=== PATIENT | female | born 1955 | race Caucasian/White ===

== ENCOUNTER 2019-10-10 00:47 | Day surgery (SDC) | payer OTHER, SELFPAY ==
[2019-10-03 15:47] VITALS: BMI 49.1
[2019-10-10 10:53] VITALS: BP 145/60; PULSE 78; RESP 16; TEMP 37.1; O2SAT 98
[2019-10-10] MEDS: LACTATED RINGERS 1,000 ML 150 ML IV CONT (11:05)
--- NOTE | 2019-10-10 11:41 | WPDANESEPPF ---
Anes - Initial Pre Proc Eval Procedure: Operation Date: 10/10/19 12:00 Proposed Procedures p Screening Colonoscopy - Lanre Blas DO Date/Time: 10/10/19 11:41 Surgeon: Lanre Blas DO Pre Op Diagnosis: neoplasm screening Patient Data Age: 64 Gender: F Height: 5 ft 4 in Weight: 124.7 kg Last Vital Signs Temp 98.8 F 10/10/19 10:53 Pulse 78 10/10/19 10:53 Resp 16 10/10/19 10:53 BP 145/60 H 10/10/19 10:53 Pulse Ox 98 10/10/19 10:53 Allergies Allergy/AdvReac Type Severity Reaction Status Date / Time bupropion Allergy Unknown Unknown Verified 10/10/19 10:52 sulfamethoxazole Allergy Unknown Unknown Verified 10/10/19 10:52 tramadol Allergy Unknown Unknown Verified 10/10/19 10:52 trimethoprim Allergy Unknown Unknown Verified 10/10/19 10:52 Home Medications Medication Instructions Recorded Confirmed Type amlodipine 10 mg PO 10/03/19 History clonazepam 1 mg PO 10/03/19 History duloxetine 60 mg PO 10/03/19 History lisinopril 20 mg PO 10/03/19 History spironolactone 25 mg PO 10/03/19 History trazodone 100 mg PO 10/03/19 History Patient hx anesthesia problems: none Family hx anesthesia problems: none PMFSH Past Medical History Medical History (Updated 10/10/19 @ 11:40 by Julio Kitchen MD) Anxiety CVA (cerebral vascular accident) Depression Hypertension Morbid obesity Social History Social History Gender identity (if verbalized by the patient): Female Anes - Eval Final PreProcedure Day of Procedure 10/10/19 11:41 Patient weight: morbidly obese Heart: regular rate and rhythm Lungs: clear to auscultation Airway: Mallampati scale class III Neurological: alert and oriented Last oral intake: >/= 8 hours ASA classification: IV Emergent: no Anesthetic plan: proceed Anesthesia type and monitoring: general GIVS and standard monitoring Informed Consent: The patient's anesthetic plan and its attendant risks and benefits were discussed with the patient/family/POA. Questions were solicited and answers provided to the satisfaction of the patient/family/POA.
--- NOTE | 2019-10-10 12:08 | PM.IMHP ---
H&P: HPI History of Present Illness Chief complaint: neoplasm screening Narrative: This very pleasant lady is being evaluated for request of the primary physician. Impression: Screening and surveillance colonoscopy. The patient has history adenomatous colon polyps. Hypertension. CVA. Depression. Morbid obesity. Recommendation: Colonoscopy. History: This very pleasant lady's being evaluated for colon cancer and polyp screening. Patient has a history of adenomatous colon polyps. Her GI review systems negative at this juncture. Past medical history : Adenomatous colon polyps. Hypertension. CVA. Depression. Obesity. Past surgical history: Colonoscopy. TAHBSO. Cholecystectomy. Family medical history: Father PR. Mother diabetes. Sister uterine cancer. Pancreatic cancer and breast cancer in the family also. Social history: One peptic day for 15 years. She quit in 2006. No drinking or illicit drug use. Fourteen point review systems unremarkable. Physical examination: Insert exam: General: very pleasant patient in no acute distress. HEENT: Head was normocephalic sclerae is clear mouth without masses neck was supple. Heart: Rate rhythm regular without S3 or S4. Lungs: CTA. Abdomen: Soft with no guarding or rigidity. Bowel sounds were active. Neurologic: Cranial nerves 2 through 12 intact. No focal defects. No clonus. Musculoskeletal system: Revealed no joint tenderness or swelling no muscle atrophy. Extremities: Reveal Mild trace edema. Obese. Skin: Warm and dry with normal turgor. Mental status: intact. Patient is alert and oriented. [facility] Past Medical History Medical History (Updated 10/10/19 @ 11:40 by Julio Kitchen MD) Anxiety CVA (cerebral vascular accident) Depression Hypertension Morbid obesity Social History Social History Gender identity (if verbalized by the patient): Female Meds Home Medications and Allergies Home Medications Medication Instructions Recorded Confirmed Type amlodipine 10 mg PO 10/03/19 History clonazepam 1 mg PO 10/03/19 History duloxetine 60 mg PO 10/03/19 History lisinopril 20 mg PO 10/03/19 History spironolactone 25 mg PO 10/03/19 History trazodone 100 mg PO 10/03/19 History Allergies Allergy/AdvReac Type Severity Reaction Status Date / Time bupropion Allergy Unknown Unknown Verified 10/10/19 10:52 sulfamethoxazole Allergy Unknown Unknown Verified 10/10/19 10:52 tramadol Allergy Unknown Unknown Verified 10/10/19 10:52 trimethoprim Allergy Unknown Unknown Verified 10/10/19 10:52 Vital Signs Vital Signs - 24 hr 10/10/19 10:53 Temperature 37.1 C Pulse Rate 78 Respiratory Rate 16 Blood Pressure 145/60 H Pulse Oximetry 98
[2019-10-10 12:27] VITALS: BP 107/48; PULSE 60; RESP 16; O2SAT 96
[2019-10-10 12:37] VITALS: BP 111/53; PULSE 59; RESP 20; O2SAT 99
[2019-10-10 12:47] VITALS: BP 127/57; PULSE 63; RESP 18; O2SAT 100
== END 2019-10-10 13:14 | disposition home or self-care (01) ==
PROVIDERS: PCP Physician Assistant; Visit Provider Internal Medicine Gastroenterology
PROC: 0DJD8ZZ Inspection of Lower Intestinal Tract, Via Natural or Artificial Opening Endoscopic (ICD-10-PCS; CPT 45378; principal; 2019-10-10 12:00)
DX: Z12.11 Encounter for screening for malignant neoplasm of colon (principal); K64.8 Other hemorrhoids; K64.4 Residual hemorrhoidal skin tags; Z86.010 Personal history of colon polyps; I10 Essential (primary) hypertension; F41.8 Other specified anxiety disorders; Z86.73 Personal history of transient ischemic attack (TIA), and cerebral infarction without residual deficits; E66.01 Morbid (severe) obesity due to excess calories; Z68.42 Body mass index [BMI] 45.0-49.9, adult; Z87.891 Personal history of nicotine dependence
CPT/HCPCS: 45378; J2704; J7120

== ENCOUNTER 2020-02-16 14:28 | Emergency (ER) | payer OTHER, SELFPAY ==
[2020-02-16 14:50] VITALS: BP 121/66; PULSE 62; RESP 16; TEMP 37.1; O2SAT 98
--- NOTE | 2020-02-16 15:20 | ED.FEMALEGU ---
HPI - Female Genitourinary General Chief complaint: Urogenital-Female Stated complaint: uti Time Seen by Provider: 02/16/20 15:20 Source: patient Mode of arrival: ambulatory Limitations: no limitations History of Present Illness HPI Narrative: Kylah Lisa is a 64 yo female with a PMH of stroke, depression, HTN, patient care complaining of suprapubic pain and what feels like a bladder infection that have been going on for 3 days. Is having difficulty urinating urinating on demand here at the clinic so urine that she brought in from home was dipstick for evaluation. She says she has frequency and feeling like she cannot fully empty her bladder, she is also complaining of irritation around the urinary meatus Related Data Home Medications Medication Instructions Recorded Confirmed amlodipine [Norvasc] 10 mg PO DAILY 02/16/20 02/16/20 clonazepam [Klonopin] 1 mg PO BID 02/16/20 02/16/20 duloxetine [Cymbalta] 60 mg PO DAILY 02/16/20 02/16/20 lisinopril [Zestril] 20 mg PO DAILY 02/16/20 02/16/20 spironolactone [Aldactone] 37.5 mg PO DAILY 02/16/20 02/16/20 trazodone 100 mg PO HS 02/16/20 02/16/20 Allergies Allergy/AdvReac Type Severity Reaction Status Date / Time sulfamethoxazole Allergy Unknown Itching Verified 02/16/20 15:07 tramadol Allergy Unknown Unknown Verified 10/10/19 10:52 trimethoprim Allergy Unknown Itching Verified 02/16/20 15:07 bupropion AdvReac Unknown Nausea Verified 02/16/20 15:07 Review of Systems Review of Systems: Narrative: CONSTITUTIONAL: Denies fever, chills, sweats. EYES: Denies visual changes, redness, discharge. ENT: Denies rhinorrhea, congestion, sore throat, otalgia. CARDIOVASCULAR: Denies chest pain, palpitations, edema. RESPIRATORY: Denies dyspnea, wheezing, cough GASTROINTESTINAL: Denies abdominal pain, nausea, vomiting, diarrhea. GENITOURINARY: Has dysuria, no hematuria, no abnormal discharge; suprapubic pressure, skin irritation around genitals SKIN: Denies rash or itching. NEUROLOGIC: Denies numbness, or focal weakness. PSYCHIATRIC: Denies anxiety or depression. PMFSH Past Medical History Medical History Anxiety CVA (cerebral vascular accident) Depression Hypertension Morbid obesity Family History Family History Other Heart disease Hypertension Social History Social History Smoking status: Never smoker Alcohol intake: never Gender identity (if verbalized by the patient): Female Comments At time of signature, I agree with nursing past medical, surgical, social and family history. There is no relevant family history pertinent to the presenting complaint. Exam Narrative: Exam Narrative: GENERAL: This is a well-nourished, well-developed patient, in mild distress. HEAD: normocephalic, atraumatic. EYES: Sclera clear/white. Vision is grossly intact. EARS: External ears normal, auditory canals clear and without drainage, TMs normal without perforation. Hearing grossly intact. NOSE: External nose normal without nasal discharge, nares without redness, no rhinorrhea. THROAT: Mucous membranes moist, NECK: Neck supple, CARDIOVASCULAR: Regular rate and rhythm without murmurs, gallops, or rubs. RESPIRATORY: Clear to auscultation. Breath sounds equal bilaterally. No wheezes, rales, or rhonchi. GASTROINTESTINAL: Abdomen soft, suprapubic tender, SKIN: warm, intact with no suspicious lesions or rash, good texture and turgor. NEURO: awake, alert, and oriented to person, place and time. There were no obvious focal neurologic abnormalities. Steady gait EXTREMITIES: Normal range of motion. BACK: Nontender without deformity Course Course Emergency Course: Dipstick of her urine brought from home shows positive blood and protein; patient unable to void on site even though given multiple amounts of water Started on Kefle
--- NOTE | 2020-02-16 15:45 | PC.NURSE ---
1436- Pt was given water and was unable to provide urine specimen while here. Pt had brought in a home sample, provide instructed to use home sample.
== END 2020-02-16 15:44 | disposition home or self-care (01) ==
PROVIDERS: Emergency Provider Nurse Practitioner; PCP Physician Assistant
DX: N30.90 Cystitis, unspecified without hematuria (principal); N90.89 Other specified noninflammatory disorders of vulva and perineum; F41.9 Anxiety disorder, unspecified; F32.9 Major depressive disorder, single episode, unspecified; I10 Essential (primary) hypertension; E66.01 Morbid (severe) obesity due to excess calories; Z68.42 Body mass index [BMI] 45.0-49.9, adult; Z86.73 Personal history of transient ischemic attack (TIA), and cerebral infarction without residual deficits
CPT/HCPCS: 81003; 99213; G0463

== ENCOUNTER 2020-02-17 19:35 | Emergency (ER) | payer OTHER, SELFPAY ==
[2020-02-17 19:37] VITALS: BP 161/65; PULSE 85; RESP 18; TEMP 37.2; O2SAT 98
--- NOTE | 2020-02-17 19:45 | ED.FEMALEGU ---
HPI - Female Genitourinary General Chief complaint: Vaginal Bleeding Stated complaint: vaginal bleeding Time Seen by Provider: 02/17/20 19:42 History of Present Illness HPI Narrative: Vaginal irritation and dysuria for a few days. Seen at urgent care yesterday diagnosed with UTI. Started on keflex. No improvmenet in symptoms. Today she started bleeding. Unsure if it from the vagina or urethera. On review of the chart from yesterday her urine dip does not seem to be consistent with UTI. Related Data Home Medications Medication Instructions Recorded Confirmed amlodipine [Norvasc] 10 mg PO DAILY 02/16/20 02/16/20 clonazepam [Klonopin] 1 mg PO BID 02/16/20 02/16/20 duloxetine [Cymbalta] 60 mg PO DAILY 02/16/20 02/16/20 lisinopril [Zestril] 20 mg PO DAILY 02/16/20 02/16/20 spironolactone [Aldactone] 37.5 mg PO DAILY 02/16/20 02/16/20 trazodone 100 mg PO HS 02/16/20 02/16/20 Allergies Allergy/AdvReac Type Severity Reaction Status Date / Time sulfamethoxazole Allergy Unknown Itching Verified 02/16/20 15:07 tramadol Allergy Unknown Unknown Verified 10/10/19 10:52 trimethoprim Allergy Unknown Itching Verified 02/16/20 15:07 bupropion AdvReac Unknown Nausea Verified 02/16/20 15:07 Review of Systems Review of Systems: All systems reviewed & are unremarkable except as noted in HPI and below Cardiovascular: Cardiovascular: Denies chest pain Respiratory: Respiratory: Denies dyspnea Gastrointestinal: Gastrointestinal: Denies abdominal pain, Denies nausea and Denies vomiting Genitourinary: Genitourinary: Reports abnormal vaginal bleeding and Reports dysuria Musculoskeletal: Musculoskeletal: Denies back pain [facility] Past Medical History Medical History Anxiety CVA (cerebral vascular accident) Depression Hypertension Morbid obesity Family History Family History Other Heart disease Hypertension Social History Social History Smoking status: Never smoker Alcohol intake: never Gender identity (if verbalized by the patient): Female Exam Const: General: no acute distress and alert Nutritional Appearance: obese Orientation/consciousness: patient oriented x3 HENMT: Head: normal to inspection Resp: Effort & Inspection: normal respiratory effort Auscultation: clear to auscultation bilaterally Cardio: Rate: regular rate Rhythm: regular rhythm GI: GI Palp: Yes Soft to palpation and No Tenderness to palpation present (GI) : Speculum Exam - Vagina: abnormal vaginal discharge bloody and yellow Bimanual exam- vagina & uterus: cervical motion tenderness Neuro: General: patient oriented x3, moves all extremities and CN's II-XI intact bilaterally Speech: normal speech Extrem: General: edema bilateral Course Vital Signs Vital signs: Vital Signs Temperature 37.2 C 02/17/20 19:37 Pulse Rate 85 02/17/20 19:37 Respiratory Rate 18 02/17/20 19:37 Blood Pressure 161/65 H 02/17/20 19:37 Pulse Oximetry 98 02/17/20 19:37 Temperature 36.9 C 02/17/20 22:35 Pulse Rate 88 02/17/20 22:35 Respiratory Rate 18 02/17/20 22:35 Blood Pressure 148/93 H 02/17/20 22:35 Pulse Oximetry 99 02/17/20 22:35 MDM - Female Genitourinary MDM Narrative Medical decision making narrative: purulent vaginal discharge on exam. Erythema an swelling throughout vaginal mucosa. Consistent with non specific vaginitis. Will treat for common infectious causes. She will need OB follow-up Medical Records Attestation: I reviewed the patient's medical records. Lab Data Attestation: I reviewed the patient's lab results. Labs: Lab Results 02/17/20 02/17/20 Range/Units 20:07 21:04 Urine Color Yellow (Yellow) Urine Appearance Clear (Clear) Urine pH 5.0 (5.0-9.0) Ur Specific [place] 1.032 (1.001-1.035) Urine Protein Negati
[2020-02-17 20:36] LABS: Add Urine Microscopic? YES; Appearance Urine Clear (Clear); Bacteria Urine Trace /hpf; Bilirubin Urine Negative (Negative); Blood Urine 2+ (Negative); Color Urine Yellow (Yellow); Glucose Urine UA Negative (Negative); Ketones Urine Negative (Negative); Leukocyte Esterase Ur Negative LEU/UL (Negative); Mucus Urine Rare /lpf; Nitrate Urine Negative (Negative); Protein Urine Negative (Negative); Specific Grav Ur 1.032 (1.001-1.035); Squamous Epithelial Cell Urine Rare /hpf (Few); Urobilinogen Urine Negative mg/dL (<2.0); WBC Urine 0-3 /hpf
[2020-02-17] MEDS: cefTRIAXone 250 MG VIAL IM (20:59)
[2020-02-17] MEDS: AZITHROMYCIN 250 MG TABLET 1000 MG PO (20:59)
[2020-02-17] MEDS: metroNIDAZOLE 250 MG TABLET 2000 MG PO (21:00)
[2020-02-17 22:35] VITALS: BP 148/93; PULSE 88; RESP 18; TEMP 36.9; O2SAT 99
== END 2020-02-17 22:35 | disposition home or self-care (01) ==
PROVIDERS: Emergency Provider Emergency Medicine; PCP Physician Assistant
DX: N76.0 Acute vaginitis (principal); F41.9 Anxiety disorder, unspecified; Z86.73 Personal history of transient ischemic attack (TIA), and cerebral infarction without residual deficits; F32.9 Major depressive disorder, single episode, unspecified; E66.01 Morbid (severe) obesity due to excess calories
CPT/HCPCS: 51701; 81001; 87070; 87077; 87491; 87591; 96372; 99284; A9270; J0696

== ENCOUNTER 2020-03-27 12:18 | Outpatient (CLI) | payer MEDICARE, MEDICAID, SELFPAY ==
--- NOTE | ~2020-03-27 | US_ITS ---
EXAMINATION: US renal BI DATE: 03/27/2020 13:01 INDICATION: Chronic kidney disease stage III. TECHNIQUE: Multiple ultrasound grayscale images of the kidneys were obtained. COMPARISON: CT abdomen and pelvis 08/09/2019 FINDINGS: The right kidney measures 10.5 x 5.2 x 5.0 cm. The left kidney measures 10.1 x 5.5 x 6.0 cm. The kidn eys demonstrate normal parenchymal echogenicity. There is no hydronephrosis. The bladder is normal. IMPRESSION: 1. Normal kidneys. No hydronephrosis. Reviewed, dictated and finalized at location B.
== END 2020-03-27 12:19 | disposition home or self-care (01) ==
PROVIDERS: PCP Physician Assistant; Visit Provider Internal Medicine Nephrology
DX: I12.9 Hypertensive chronic kidney disease with stage 1 through stage 4 chronic kidney disease, or unspecified chronic kidney disease (principal); N18.3 Chronic kidney disease, stage 3 (moderate); I63.9 Cerebral infarction, unspecified
CPT/HCPCS: 76775

== ENCOUNTER 2020-06-06 12:30 | Outpatient (RCR) | payer MEDICARE, SELFPAY ==
--- NOTE | 2020-04-27 10:50 | PTOPEVAL ---
Thank you for referring Kylah Lisa to [facility].? The patient is scheduled to be seen for therapy? 2 x/week for 4 weeks. Please review, sign, date and return this plan of care MAIRA. I agree with and certify that the following plan of care is medically necessary. Referring Physician Date Attending Provider: Rishabh Hayes, PA *PT Outpatient Evaluation Start: 04/27/20 09:21 Freq: Status: Active Protocol: Document 04/27/20 09:31 YARIEL (Rec: 04/27/20 10:36 YARIEL [email or web address]) Therapy Assessment Status Assessment Status Assessment Status Evaluation Outpatient Past Medical History Past Medical History Source of Past Medical History Patient,Recalled from Previous Visit, Confirmed with Patient /Family Neurological History Hx Cerebrovascular Accident (CVA) Yes: 07/01/18 Cardiovascular History Hx Hypertension Yes Respiratory History Hx Respiratory Disorders No Significant History Gastrointestinal History Hx Cholecystectomy Yes Genitourinary History Hx Urinary Tract Infection Yes Musculoskeletal History Hx Musculoskeletal Disorders No Significant History Hematological History Hx Hematological Disorders No Significant History Endocrine History Hx Endocrine Disorders No Significant History HEENT History Hx Eye Surgery Yes: DETACHED RETINA Integumentary History Hx Eczema Yes Reproductive History Hx Post Menopausal Yes Psychosocial History Hx Anxiety Yes Hx Bipolar Disorder Yes Hx Depression Yes Pain History History of Any Previous or Ongoing No Significant History Instance of Pain Anesthesia History Hx Anesthesia Reactions No Significant History Evaluation Information Problem Diagnosis CVA Onset 2017 Additional Evaluation Detail She is unable to lay on her side due to dizziness. She sleeps in a recliner. Subjective Information She is walking daily with Query Text:As Reported By Patient/ varied distance. She pushes Family the transport chair to allow her to sit when fatigued. She performs HEP daily. Her right arm and leg continues to feel numb. she has difficutly feeling her right foot to be able to drive. She states this has been an issue since the stroke. She is able to perform
--- NOTE | 2020-04-27 12:02 | OTOPEVAL ---
OCCUPATIONAL THERAPY INITIAL EVALUATION/DISCHARGE SUMMARY: 04/27/2020 Thank you for referring Kylah Lisa to [facility].? Kylah has continued to achieve improvements of functional strength and independence since last evaluation completed 06/24/2019. Please review, sign, date and return this initial evaluation/discharge summary MAIRA. I agree with and certify that the following plan of care is medically necessary. Referring Physician Date Attending Provider: Rishabh Hayes, PA *OT Outpatient Evaluation/Discharge Summary Start: 04/27/20 10:37 Freq: Status: Active Protocol: Document 04/27/20 10:30 KJL (Rec: 04/27/20 12:02 KJL [email or web address]) Therapy Assessment Status Assessment Status Initial Evaluation/ Discharge Summary Evaluation Information Problem Diagnosis CVA Onset june 2018 Additional Evaluation Detail Pt experienced CVA in June of 2018 resulting in R sided hemiplegia and decreased sensation. Pt came to Outpatient OT from January 2019 - June 24, 2019 adressing R UE strength, coordination, decreased sensation. Subjective Information Pt reports since Outpatient OT Query Text:As Reported By Patient/ in 2019 is able to cook, Family clean, complete all ADL tasks independently but is still not able to drive and needs assistance getting into and out of bathtub occationally. Pt reports improvements with feelings items and still completes coordination and sensation HEP's that were issued in june of 2019. Prior Level of Function Activity Level (Last 3 Months) Hand Dominance Right Activity of Daily Living Ability Independent Indoor/Home Mobility Independent Community Mobility Independent Stairs Ability Independent Functional Cognition (Planning, Shopping Independent , Taking Medications) Cooking Yes Cleaning Yes Laundry Yes Shopping Yes Driving Yes Home Setting Home Type House,Single Level Environmental Barriers Elena, Carpet,Elena, Hardwood,Stairs, None Living Situation With Significant Other Support Available Local Family Support Mobility Assistive Device
--- NOTE | 2020-06-05 14:04 | PCPTNOTE ---
Patient called & cancelled scheduled appointment this date due to sick.
--- NOTE | 2020-06-06 14:37 | PTOPEVAL ---
Thank you for referring Kylah Lisa to [facility].? Pt has received 9 therapy visits from 04/27/20-06/06/20 to address impairments of weakness, decreased balance and decreased functional mobility. She demonstrates progress with balance on Tapia balance scale, improved hip strength and improved walking speed on TUG. She is indep with her HEP. She has partially achieved her therapy goals at this time. DC skilled therapy services with pt to cont with her HEP. Please review, sign, date and return this plan of care MAIRA. I agree with and certify that the following plan of care is medically necessary. Referring Physician Date Admitting Provider: Attending Provider: Rishabh Hayes, PA Referring Provider: *PT Outpatient Evaluation Start: 04/27/20 09:21 Freq: Status: Active Protocol: Document 06/06/20 12:29 CAP (Rec: 06/06/20 13:24 CAP [email or web address]) Therapy Assessment Status Assessment Status Assessment Status Re-evaluation/Discharge Note Evaluation Information Problem Diagnosis CVA Onset June 2018 Additional Evaluation Detail Pt experienced CVA in June of 2018 resulting in R sided hemiplegia Subjective Information She cont to walk daily but Query Text:As Reported By Patient/ cont to require the use of Family holding onto a wheelchair for support. She walks for up to 1 hour. She is only able to walk short distances with the cane due to fatigue. She will walk in a store when the weather is bad. Denies any changes in the symptoms of right UE/LE. 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 Cont to require assistance with getting out of the tub. She is performing her HEP consistently. She does feel her confidence with her walking has improved. Pain Assessment Self Report Self Report Pain Level 0 Pain Score Pain Score 0: Self Report Lower Extremity Muscle Strength Testing Hip Strength Left Hip Flexion Strength 4+ Good + Hip Extension Strength 5 Normal Hip Abduction Strength 3+ Fair + Hip Strength Comments hip ext/abd measured in standing Right Hip Flexion Strength 4+ Good + Hip Extension Strength 4+ Good + Hip Abduction Strength 3+ Fair + Hip Strength Comments hip ext and abd measured in st
== END 2020-06-08 09:30 | disposition home or self-care (01) ==
LOC: ANHPT 12:30
PROVIDERS: PCP Physician Assistant; Visit Provider Physician Assistant
DX: I63.9 Cerebral infarction, unspecified (principal)
CPT/HCPCS: 97110; 97112; 97116; 97162; 97165; 97530

== ENCOUNTER 2021-04-13 06:27 | Emergency (ER) | payer MEDICARE, MEDICAID, SELFPAY ==
--- NOTE | ~2021-04-13 | XR_ITS ---
EXAMINATION: XR chest 2V EXAM DATE: 04/13/2021 07:07 INDICATION: Chest pain and shortness of breath. TECHNIQUE: Frontal and lateral projections of the chest obtained and reviewed. Comparison is made to prior examination from 12/04/2018. FINDINGS: The lungs are clear. There are no pleural effusions. The cardiomediastinal silhouette is within normal limits. There is no pneumothorax suspected. The bones and soft tissues are unremarkab le. IMPRESSION: No acute cardiopulmonary findings. Reviewed, dictated and finalized at location A.
[2021-04-13 06:30] VITALS: BP 153/73; PULSE 88; RESP 16; TEMP 37.6; O2SAT 97
--- NOTE | 2021-04-13 06:43 | ECG_ITS ---
Measurements Intervals [place] Rate: 84 P: 37 LA: 155 QRS: 32 QRSD: 106 T: 46 QT: 360 QTc: 427 Interpretive Statements SINUS RHYTHM LOW QRS VOLTAGE IN PRECORDIAL LEADS BORDERLINE ST-T WAVE ABNORMALITY- ANTERIOR LEADS BORDERLINE ECG Electronically Signed On 04-13-2021 11:22:56 CDT by Yosef Wise D.O.
[2021-04-13 06:54] LABS: Basophils Absolute Auto 0.1 K/mm3 (0.0-0.1); Basophils Percent Auto 0.5 % (0.2-1.2); Eosinophils Absolute Auto 0.3 K/mm3 (0-0.3); Eosinophils Percent Auto 1.9 % (0-4.4); Hematocrit 39.3 % (37.0-47.0); Hemoglobin 12.1 g/dL (12.0-15.0); Immature Granulocyte Absolute 0.08 K/mm3 (0.00-0.031); Immature Granulocyte Percent A 0.5 % (0-0.5); Lymphocytes Absolute Auto 1.46 K/mm3 (0.9-3.2); Lymphocytes Percent Auto 9.1 % (18.3-44.2); Mean Corpuscular HGB Conc 30.8 g/dl (32-36); Mean Corpuscular Hemoglobin 29.7 pg (26-34); Mean Corpuscular Volume 96.3 fl (80-100); Mean Platelet Volume 9.3 fl (7.4-10.4); Monocytes Absolute Auto 0.9 K/mm3 (0.1-0.6); Monocytes Percent Auto 5.9 % (2.6-8.5); Neutrophils Absolute Auto 13.2 K/mm3 (1.3-6.7); Neutrophils Percent Auto 82.1 % (45.5-73.1); Platelet Count Result 310 k/mm3 (150-375); Red Blood Count 4.08 M/mm3 (4.2-5.4); Red Cell Distribution Width 12.8 % (11.5-14.5)
[2021-04-13 07:47] LABS: Anion Gap 6 mmol/L (8-16); Blood Urea Nitrogen 19 mg/dL (7-17); Calcium 8.5 mg/dL (8.4-10.2); Carbon Dioxide 30 mmol/L (22-30); Chloride 103 mmol/L (98-107); Estimated CRCL calculation 51 ml/min; Estimated Glomerular Filt Rate 41; Glucose 130 mg/dL (65-110); Potassium 3.8 mmol/L (3.4-5.0); Sodium 139 mmol/L (137-145)
--- NOTE | 2021-04-13 08:07 | ED.SOB ---
HPI - SOB/Dyspnea General Chief Complaint: Shortness of Breath/Dyspnea Stated Complaint: SOB, CP, cough Time Seen by Provider: 04/13/21 07:42 Source: patient Limitations: no limitations History of Present Illness HPI Narrative: Patient presents with cold symptoms for the last 3 days, dry cough, not feeling well. Patient is fully vaccinated for COVID-19. Patient lives with asymptomatic family. Patient denies any chest pain. Patient believes that she have pneumonia because she had similar symptoms in the past secondary to pneumonia. Patient also complaining of hoarseness and raspy voice Related Data Home Medications Medication Instructions Recorded Confirmed amlodipine [Norvasc] 10 mg PO DAILY 02/16/20 02/16/20 duloxetine [Cymbalta] 60 mg PO DAILY 02/16/20 02/16/20 lisinopril [Zestril] 20 mg PO DAILY 02/16/20 02/16/20 spironolactone [Aldactone] 37.5 mg PO DAILY 02/16/20 02/16/20 trazodone 100 mg PO HS 02/16/20 02/16/20 clonazepam 04/13/21 Allergies Allergy/AdvReac Type Severity Reaction Status Date / Time sulfamethoxazole Allergy Unknown Itching Verified 04/13/21 06:39 tramadol Allergy Unknown Unknown Verified 04/13/21 06:39 trimethoprim Allergy Unknown Itching Verified 04/13/21 06:39 bupropion AdvReac Unknown Nausea Verified 04/13/21 06:39 Review of Systems Review of Systems: CONSTITUTIONAL: Denies fever, chills, or sweats. EYES: Denies visual changes, redness, or discharge. ENT: Denies rhinorrhea, congestion, sore throat, or otalgia. CARDIOVASCULAR: Denies chest pain, palpitations, or edema. RESPIRATORY: Denies cough or dyspnea. GASTROINTESTINAL: Denies abdominal pain, nausea, vomiting, or diarrhea. GENITOURINARY: Denies dysuria or hematuria. SKIN: Denies rash or itching. MUSCULOSKELETAL: Denies back pain, joint pain, or myalgia. NEUROLOGIC: Denies headache, numbness, or weakness. PSYCHIATRIC: Denies anxiety or depression. [facility] Past Medical History Medical History (Updated 04/13/21 @ 09:46 by Isak Prakash MD) Anxiety CVA (cerebral vascular accident) Depression Hypertension Morbid obesity Family History Family History Other Heart disease Hypertension Social History Social History Smoking status: Never smoker Alcohol intake: never Gender identity (if verbalized by the patient): Female Exam Narrative: General appearance: Well-developed, well-nourished Skin: Normal color Head: Normocephalic, nontraumatic Eyes: Clear conjunctiva ENT: Oropharynx normal, ears normal, nose normal Neck: Supple, nontender Chest and respiratory: Airway patent, no respiratory distress, no accessory muscle use Heart: Regular rate/rhythm Abdomen: Soft, nontender, no organomegaly, quiet bowel sounds Vascular: Normal peripheral pulses, normal capillary refill. Musculoskeletal: Normal range of motion, nontender back Neurologic: Alert and oriented ?3, CERTIFIED ORTHOPTIST is normal as tested, no gross motor deficit Course Course Emergency Course: Stable Vital Signs Vital signs: Vital Signs Temperature 37.6 C H 04/13/21 06:30 Pulse Rate 88 04/13/21 06:30 Respiratory Rate 16 04/13/21 06:30 Blood Pressure 153/73 H 04/13/21 06:30 Pulse Oximetry 97 04/13/21 06:30 Temperature 37.6 C H 04/13/21 06:30 Pulse Rate 88 04/13/21 06:30 Respiratory Rate 16 04/13/21 06:30 Blood Pressure 153/73 H 04/13/21 06:30 Pulse Oximetry 97 04/13/21 06:30 MDM - SOB/Dyspnea MDM Narrative Medical decision making narrative: Viral infection is my concern. Labs, chest x-ray ordered. Covid swab, influenza swab ordered. Patient did not russel
[2021-04-13 08:15] LABS: Alanine Aminotransferase 14 U/L (4-35); Albumin Level 3.9 g/dL (3.5-5.1); Alkaline Phosphatase 77 U/L (38-126); Aspartate Amino Transferase 20 U/L (14-36); Bilirubin,Total 0.5 mg/dL (0.2-1.3)
[2021-04-13 09:50] VITALS: BP 132/68; PULSE 78; RESP 18; O2SAT 99
[2021-04-13 19:29] LABS: SARS-CoV-2 RNA PCR Negative
== END 2021-04-13 09:51 | disposition home or self-care (01) ==
PROVIDERS: Emergency Medicine; Emergency Provider Emergency Medicine; PCP Physician Assistant
DX: J06.9 Acute upper respiratory infection, unspecified (principal); E86.0 Dehydration; Z20.822 Contact with and (suspected) exposure to COVID-19; F41.9 Anxiety disorder, unspecified; F32.9 Major depressive disorder, single episode, unspecified; I10 Essential (primary) hypertension; E66.01 Morbid (severe) obesity due to excess calories; Z68.42 Body mass index [BMI] 45.0-49.9, adult; R94.31 Abnormal electrocardiogram [ECG] [EKG]
CPT/HCPCS: 36415; 71046; 80048; 80076; 85025; 87804; 93005; 99284; C9803; U0003; U0005

== ENCOUNTER 2024-04-08 10:22 | Inpatient (IN) | payer MEDICARE, SELFPAY ==
[2024-04-08] VITALS (14 sets, daily range): BP systolic 93–119; BP diastolic 34–66; PULSE 72–88; RESP 12–22; TEMP 36.4–36.9; O2SAT 97–100; BMI 56.7
--- NOTE | ~2024-04-08 | US_ITS ---
EXAMINATION:US venous doppler LE RT INDICATION:Right leg pain TECHNIQUE: Multiple grayscale, color flow and Doppler images of the right lower extremity deep venous systems were obtained and reviewed. COMPARISON:No prior studies for comparison. FINDINGS: The common femoral, superficial femoral and popliteal veins demonstrate normal respiratory variation, augmentation and compressibility. Color flow is also seen within the posterior tibial, pe roneal, greater saphenous and profunda veins. IMPRESSION: 1: No lower extremity deep venous thrombosis. Reviewed, dictated and finalized at location B.
--- NOTE | ~2024-04-08 | US_ITS ---
EXAMINATION: US arterial ankle brachial ind DATE: 04/10/2024 10:18 INDICATION: Peripheral arterial disease. TECHNIQUE: Segmental pressures and plethysmographic and Doppler waveforms of the brachial and lower e xtremity arteries were obtained. COMPARISON: None. FINDINGS: Right and left brachial artery pressures of 132 mm Hg and 145 mm Hg, respectively, are concordant (no rmal difference <= 30 mmHg). The right ankle-brachial index (EDDIE) is 0.59 (normal >= 0.9-1.0). The right great toe-brachial index (TBI) is 0.26 (normal >= 0.65). Arterial Doppler waveforms are biphasic in posterior tibial artery an d triphasic in dorsalis pedis. The left EDDIE is 0.81. The left TBI is 0.32. Arterial Doppler waveforms are triphasic in posterior tib ial artery and biphasic in dorsalis pedis. IMPRESSION: 1. Moderately decreased right EDDIE and mildly decreased left EDDIE, consistent with arterial occlusive d isease. Reviewed, dictated and finalized at location A. IMPRESSION: 1. Moderately decreased right EDDIE and mildly decreased left EDDIE, consistent wit h arterial occlusive disease.
--- NOTE | ~2024-04-08 | US_ITS ---
Renal-Bladder ultrasound Clinical History: Chronic kidney disease Technique: Real-time sonographic imaging of the kidneys and urinary bladder was performed. Findings: The right kidney measures 11.1 cm in length and the left kidney measures 13.7 cm. There is no hydronephrosis or renal calculus identified. Renal cortical echogenicity is within normal limits. No renal mass lesion is identified. The urinary bladder is collapsed, limiting evaluation. Impression: No significant abnormality seen. Collapsed urinary bladder limits evaluation. Reviewed, dictated and finalized at location M. Impression: No significant abnormality seen. Collapsed urinary bladder limits evaluation.
--- NOTE | 2024-04-08 10:37 | ED.EXTPRO ---
HPI - Extremity Problem General Chief complaint: Extremity Problem,Nontraumatic Stated complaint: R leg pain Time Seen by Provider: 04/08/24 10:25 History of Present Illness HPI Narrative: This is a 69-year-old female with a past medical history significant for prior CVA with residual right-sided hemiplegia, morbid obesity and chronic venous stasis dermatitis of bilateral lower extremities well as osteoarthropathy. Patient normally ambulates with a cane. Patient states for last 3 days she has been having increasing pain, swelling, redness of her right lower extremity. Denies any trauma recent injuries or illnesses. Was otherwise in her normal state of health. She states she has chronic venous stasis ulcers bilaterally without any worsening of them but knows that the right lower extremity has some redness overlying and she is concerned for an infection. Denies any systemic features such as fever, chills, headache, vision changes, chest pain, shortness a breath, abdominal pain, back pain. She has tried Tylenol at home which did alleviate the pain somewhat. No history of DVT, recent travel, recent procedures or hormone replacement therapy. Related Data Home Medications Medication Instructions Recorded Confirmed duloxetine 60 mg capsule,delayed 60 mg PO BID 02/16/20 04/08/24 release (Cymbalta) lisinopril 20 mg tablet (Zestril) 40 mg PO DAILY 02/16/20 04/08/24 spironolactone 25 mg tablet 25 mg PO DAILY 02/16/20 04/08/24 (Aldactone) trazodone 100 mg tablet 100 mg PO HS 02/16/20 04/08/24 clonazepam 1 mg tablet 1 mg PO TID 04/13/21 04/08/24 Adults Multivitamin 1 tablet BYMOUTH DAILY 04/08/24 04/08/24 ascorbic acid (vitamin C) 1,000 mg PO DAILY 04/08/24 04/08/24 chlorthalidone 25 mg tablet 25 mg PO DAILY 04/08/24 04/08/24 torsemide 10 mg tablet 10 mg PO DAILY 04/08/24 04/08/24 Allergies Allergy/AdvReac Type Severity Reaction Status Date / Time sulfamethoxazole Allergy Unknown Itching Verified 04/08/24 15:15 tramadol Allergy Unknown Unknown Verified 04/08/24 15:15 trimethoprim Allergy Unknown Itching Verified 04/08/24 15:15 bupropion AdvReac Unknown Nausea Verified 04/08/24 15:15 Review of Systems Review of Systems: As reviewed above in [facility] Past Medical History Medical History (Updated 04/08/24 @ 21:18 by Zenon Hanna MD) Anxiety and depression Arthritis CVA (cerebral vascular accident) Depression Diverticulitis Eczema GERD (gastroesophageal reflux disease) Hypertension Morbid obesity Osteoarthritis of knees, bilateral Osteoporosis Psoriasis Venous stasis dermatitis of both lower extremities Surgical History Surgical History (Updated 04/08/24 @ 16:15 by Kellee Menjivar APRN) History of appendectomy History of cholecystectomy History of tonsillectomy Family History Family History Other Diabetes mellitus Heart disease Hypertension Social History Social History Smoking status: Former smoker Second hand tobacco smoke exposure: Yes Alcohol intake: never Substance use: never Substance use type: does not use Do You Feel Safe in your Home?: Yes Lack of Transportation: No Lack of Food: Never True Current Housing: I Have Housing Concerned About Future Housing: Decline to Answer Difficulty Paying Gas/Electric Bills: Decline to Answer Difficulty Paying for Meds: Decline to Answer Currently Unemployed: Decline to Answer Education: Decline to Answer Difficulty w/ Childcare or Family Care: Decline to Answer Living arrangements: with family Occupation/Education: unemployed Additional occupation/education comments: disability Gender identity (if verbalized by the patient): Female Spiritual care concerns: No Exam Narrative: GENERAL: Morbidly obese, in pain, awake alert answering questions appropriately. HEAD: [Normocephalic, atraumat
[2024-04-08] MEDS: HYDROmorphone HCL INJ (*CRX) 1 MG/ML SYR IM (10:55)
[2024-04-08 11:12] LABS: Basophils Absolute Auto 0.1 K/mm3 (0.0-0.1); Basophils Percent Auto 0.2 % (0.2-1.2); Eosinophils Absolute Auto 0.1 K/mm3 (0-0.3); Eosinophils Percent Auto 0.5 % (0-4.4); Hematocrit 35.6 % (37.0-47.0); Hemoglobin 11.6 g/dL (12.0-15.0); Immature Granulocyte Absolute 0.14 K/mm3 (0.00-0.031); Immature Granulocyte Percent A 0.6 % (0-0.5); Lymphocytes Absolute Auto 1.33 K/mm3 (0.9-3.2); Mean Corpuscular HGB Conc 32.6 g/dl (32-36); Mean Corpuscular Hemoglobin 30.9 pg (26-34); Mean Corpuscular Volume 94.7 fl (80-100); Mean Platelet Volume 9.5 fl (7.4-10.4); Monocytes Absolute Auto 0.6 K/mm3 (0.1-0.6); Monocytes Percent Auto 2.9 % (2.6-8.5); Neutrophils Percent Auto 89.8 % (45.5-73.1); Platelet Count Result 279 k/mm3 (150-375); Red Blood Count 3.76 M/mm3 (4.2-5.4); Red Cell Distribution Width 14.4 % (11.5-14.5); White Blood Count 22.2 K/mm3 (4.5-10.0)
[2024-04-08 11:22] LABS: Anion Gap 15 mmol/L (4-12); Blood Urea Nitrogen 66 mg/dL (7-17); Calcium 9.1 mg/dL (8.4-10.2); Carbon Dioxide 22 mmol/L (22-30); Chloride 98 mmol/L (98-107); Estimated CRCL calculation 20 ml/min; Estimated Glomerular Filt Rate 13; Glucose 112 mg/dL (65-110); INR 1.2; Potassium 3.9 mmol/L (3.4-5.0); Prothrombin Time 15.9 Seconds (11.1-14.7); Sodium 135 mmol/L (137-145)
[2024-04-08 11:24] LABS: Partial Thromboplastin Time 35.1 Seconds (22.3-36.8)
--- NOTE | 2024-04-08 13:30 | PM.IMHP ---
H&P: HPI History of Present Illness Date/Time: 04/08/24 13:30 Chief Complaint: Leg Swelling Narrative: 69 y/o F presents here with leg swelling with PMH of anxiety/depression, CVA with residual right-sided hemiplegia, obesity, chronic venous stasis dermatitis, and hypertension. The patient presents here via personal vehicle from home for further evaluation of lower extremity swelling. The patient reports onset of increased pain, swelling, and erythema to her right lower extremity with onset approximately 3 days ago. She describes the pain to her RLE as sharp, nonradiating, constant, partially relieved with Tylenol, and no aggravating factors. She denies any precipitating injury or trauma to RLE. Patient does have history of chronic venous stasis ulcers bilaterally, ulcerations are unchanged but skin surrounding ulceration on the right had changes as listed. Patient has no known history of DVT or PE. Denies any recent extended travel/immobility, surgery, or malignancy with treatment. Patient denies any associated fever, chills, body aches, chest pain, shortness of breath, orthopnea, or dizziness. Patient is ambulatory at baseline with a cane. Patient endorses history of kidney disease, unsure what her function is at but has been told her kidneys work at 50%. Patient endorses seeing Vascular previously through a Abhishek FOY who practices through [employer] and in [place]. Initial VS at presentation: 98.5? F, HR 79, RR 16, 104/59, and 97% on RA ED workup showed: WBC 22.2, hemoglobin 11.6, INR 0.2, creatinine 3.6 and GFR 13 (previously 1.3 and GFR 41 in 2020), glucose 112. US of the RLE showed no DVT. Review of Systems Review of Systems: All systems reviewed & are unremarkable except as noted in HPI and below PMFSH Past Medical History Medical History (Updated 04/08/24 @ 16:15 by Kellee Menjivar APRN) Anxiety and depression Arthritis CVA (cerebral vascular accident) Depression Diverticulitis Eczema GERD (gastroesophageal reflux disease) Hypertension Morbid obesity Osteoarthritis of knees, bilateral Osteoporosis Psoriasis Venous stasis dermatitis of both lower extremities Surgical History Surgical History (Updated 04/08/24 @ 16:15 by Kellee Menjivar APRN) History of appendectomy History of cholecystectomy History of tonsillectomy Family History Family History Other Diabetes mellitus Heart disease Hypertension Social History Social History Smoking status: Former smoker Second hand tobacco smoke exposure: Yes Alcohol intake: never Substance use: never Substance use type: does not use Do You Feel Safe in your Home?: Yes Lack of Transportation: No Lack of Food: Never True Current Housing: I Have Housing Concerned About Future Housing: Decline to Answer Difficulty Paying Gas/Electric Bills: Decline to Answer Difficulty Paying for Meds: Decline to Answer Currently Unemployed: Decline to Answer Education: Decline to Answer Difficulty w/ Childcare or Family Care: Decline to Answer Living arrangements: with family Occupation/Education: unemployed Additional occupation/education comments: disability Gender identity (if verbalized by the patient): Female Spiritual care concerns: No Meds Home Medications and Allergies Home Medications Medication Instructions Recorded Confirmed Type duloxetine 60 mg capsule,delayed 60 mg PO BID 02/16/20 04/08/24 History release (Cymbalta) lisinopril 20 mg tablet (Zestril) 40 mg PO DAILY 02/16/20 04/08/24 History spironolactone 25 mg tablet 25 mg PO DAILY 02/16/20 04/08/24 History (Aldactone) trazodone 100 mg tablet 100 mg PO HS 02/16/20 04/08/24 History clonazepam 1 mg tablet 1 mg PO TID 04/13/21 04/08/24 History Adults Multivitamin 1 tablet BYMOUTH DAILY 04/08/24 04/08/24 History ascorbic acid (vitamin C) 1,000 mg PO D
[2024-04-08 14:08] LABS: Creatine Kinase 100 U/L (30-135)
--- NOTE | 2024-04-08 15:04 | ADMGEN ---
This patient, Kylah Lisa, was admitted to Medical Room 341-01. Patient/family oriented to hospital policies and general routines including ID bracelet, bed and alarms, visiting hours, pain management, procedures, bathroom and other care routines, personal items, smoking policy, room service/diet, and visiting hours. Information on how to activate the Rapid Response Team has been discussed. Patient/Family are encouraged to report perceived risks to care and to ask questions if they do not understand what they are told or what they should do.
[2024-04-08] MEDS: LACTATED RINGERS 1,000 ML 999 ML IV CONT (15:06)
[2024-04-08] MEDS: HYDROmorphone HCL INJ (*CRX) 1 MG/ML SYR IV PUSH (15:07)
[2024-04-08] MEDS: CLINDAMYCIN 600 MG/D5W 50 ML 600 MG/50 ML PIGGYBACK 100 MG IVPB (15:07)
[2024-04-08] MEDS: PIPERACILLIN/TAZ 2.25G/NS 50ML 2.25 GM/50 ML BAG IVPB ×2 (15:40→21:13)
[2024-04-08] MEDS: clonazePAM (*CRX) 0.5 MG TABLET 1 MG PO (17:57)
[2024-04-08] MEDS: DULoxetine HCL 60 MG CAPSULE.DR PO (17:57)
[2024-04-08] MEDS: LACTATED RINGERS 1,000 ML 100 ML IV CONT (17:57)
[2024-04-08] MEDS: HYDROmorphone HCL INJ (*CRX) 1 MG/ML SYR 0.5 MG IV PUSH ×2 (18:06→21:29)
[2024-04-08 19:16] LABS: Creatinine Urine 268.1 mg/dL
[2024-04-08 19:19] LABS: Sodium Urine Random 49 meq/L
[2024-04-08 19:22] LABS: Creatinine Urine 271.5 mg/dL; Total Protein Urine Random 18 mg/dL; Ur Ttl Prot Creatinine Ratio 0.07 mg/mg (0-0.20)
[2024-04-08 20:07] LABS: Add Urine Microscopic? YES; Appearance Urine Cloudy (Clear); Bacteria Urine 3+ /hpf; Bilirubin Urine Negative (Negative); Blood Urine Negative (Negative); Color Urine Yellow (Yellow); Glucose Urine UA Negative (Negative); Ketones Urine Trace mg/dL (Negative); Leukocyte Esterase Ur 2+ LEU/UL (Negative); Need Manual Microscopic Reviewed; Nitrate Urine Negative (Negative); Protein Urine Trace mg/dL (Negative); Specific Grav Ur 1.019 (1.001-1.035); Squamous Epithelial Cell Urine Moderate /hpf (Few); Urobilinogen Urine 0.2 mg/dL (<2.0); WBC Urine 51-100 /hpf (0-3)
[2024-04-08] MEDS: traZODone HCL 50 MG TABLET 100 MG PO (21:14)
[2024-04-09] MEDS: HYDROmorphone HCL INJ (*CRX) 1 MG/ML SYR 0.5 MG IV PUSH ×6 (02:29→20:57)
[2024-04-09 05:22] LABS: Basophils Absolute Auto 0.1 K/mm3 (0.0-0.1); Basophils Percent Auto 0.4 % (0.2-1.2); Eosinophils Absolute Auto 0.2 K/mm3 (0-0.3); Eosinophils Percent Auto 1.8 % (0-4.4); Hemoglobin 10.8 g/dL (12.0-15.0); Immature Granulocyte Absolute 0.12 K/mm3 (0.00-0.031); Immature Granulocyte Percent A 0.9 % (0-0.5); Lymphocytes Absolute Auto 1.56 K/mm3 (0.9-3.2); Lymphocytes Percent Auto 11.5 % (18.3-44.2); Mean Corpuscular HGB Conc 31.8 g/dl (32-36); Mean Corpuscular Volume 97.7 fl (80-100); Mean Platelet Volume 9.7 fl (7.4-10.4); Monocytes Absolute Auto 0.7 K/mm3 (0.1-0.6); Monocytes Percent Auto 5.3 % (2.6-8.5); Neutrophils Absolute Auto 10.9 K/mm3 (1.3-6.7); Neutrophils Percent Auto 80.1 % (45.5-73.1); Platelet Count Result 275 k/mm3 (150-375); Red Blood Count 3.48 M/mm3 (4.2-5.4); Red Cell Distribution Width 14.6 % (11.5-14.5); White Blood Count 13.6 K/mm3 (4.5-10.0)
[2024-04-09] MEDS: PIPERACILLIN/TAZ 2.25G/NS 50ML 2.25 GM/50 ML BAG IVPB ×3 (05:26→20:49)
[2024-04-09 05:32] LABS: Alanine Aminotransferase 21 U/L (6-35); Albumin Level 3.8 g/dL (3.5-5.1); Alkaline Phosphatase 72 U/L (38-126); Anion Gap 13 mmol/L (4-12); Aspartate Amino Transferase 34 U/L (14-36); Bilirubin,Total 0.4 mg/dL (0.2-1.3); Blood Urea Nitrogen 71 mg/dL (7-17); Calcium 8.7 mg/dL (8.4-10.2); Carbon Dioxide 23 mmol/L (22-30); Chloride 98 mmol/L (98-107); Estimated CRCL calculation 16 ml/min; Estimated Glomerular Filt Rate 10; Glucose 99 mg/dL (65-110); Potassium 4.1 mmol/L (3.4-5.0); Sodium 134 mmol/L (137-145)
[2024-04-09 06:00] VITALS: BP 90/45; PULSE 70; RESP 18; TEMP 36.8; O2SAT 95
[2024-04-09] MEDS: clonazePAM (*CRX) 0.5 MG TABLET 1 MG PO ×3 (08:52→17:08)
[2024-04-09] MEDS: DULoxetine HCL 60 MG CAPSULE.DR PO ×2 (08:52→17:08)
[2024-04-09] MEDS: lisinopriL 20 MG TABLET 40 MG PO (08:52)
[2024-04-09] MEDS: CHLORTHALIDONE 25 MG TABLET PO (08:52)
[2024-04-09] MEDS: ENOXAPARIN 30 MG/0.3 ML SYRINGE SUB-Q (08:53)
[2024-04-09] MEDS: TORSEMIDE 10 MG TABLET PO (08:53)
[2024-04-09] MEDS: SPIRONOLACTONE 25 MG TABLET PO (08:53)
--- NOTE | 2024-04-09 08:54 | PM.IMPN ---
Progress Note: A&P Assessment and Plan (1) Cellulitis of right lower extremity: Code(s): L03.115 - Cellulitis of right lower limb Status: Acute Assessment and Plan: - did not meet SIRS criteria: WBC only - WBC 22.2 - US of RLE showed no DVT - known small venous stasis ulcerations of BLE - started on clindamycin on 04/08, transitioned to Zosyn to cover possible UTI (UA equivocal, follow culture) - wound care consulted - monitor WBC -pain medication with [place] and p.r.n. Dilaudid for breakthrough (2) Acute kidney injury: Code(s): N17.9 - Acute kidney failure, unspecified Status: Acute Assessment and Plan: - creatinine 3.6 and GFR 13, previously 1.3 and GFR 41 in 2020. Unclear recent baseline. - add CK, urine sodium, urine protein/creatinine, urine creatinine - UA equivocal for UTI, may be contaminant. Antibiotics exchanged to cover for possible UTI, follow culture. - bladder scan for post-void residual - monitor I&Os - will hold home diuretics due to unclear baseline. on torsemide 10 mg daily, spironolactone 25 mg daily, and chlorthalidone 25 mg daily. - will start IV fluids (3) Venous stasis ulcers of both lower extremities: Code(s): I83.019 - Varicose veins of right lower extremity with ulcer of unspecified site; I83.029 - Varicose veins of left lower extremity with ulcer of unspecified site; L97.919 - Non-pressure chronic ulcer of unspecified part of right lower leg with unspecified severity; L97.929 - Non-pressure chronic ulcer of unspecified part of left lower leg with unspecified severity Status: Acute Assessment and Plan: - will need outpatient follow-up with Vascular---already established -Hernandez wraps to bilateral lower extremities when pain is better controlled - wound care consulted Plan Apnea link added to screen for ROBE, patient reported she has put off scheduling a formal sleep study due to concerns for ROBE by her vascular surgeon. Apnea link showed AHI 4.9 and MAGGI 6.1. She had 6 minutes of desaturations less than 90% and 2 minutes of desaturations of less than 89%. Total desaturations of 44. Diet: Renal GI Prophylaxis: Not currently indicated DVT Prophylaxis: Lovenox 30 Lines: Peripheral Code Status: Full code Subjective Date/time seen: 04/09/24 08:54 Interval history: 69 y/o F presents here with leg swelling with PMH of anxiety/depression, CVA with residual right-sided hemiplegia, obesity, chronic venous stasis dermatitis, and hypertension. The patient presents here via personal vehicle from home for further evaluation of lower extremity swelling. 04/09: Patient is seen sitting on the edge of the bed and is crying because she is in pain. She states that she has severe pain to her right lower extremity. The Dilaudid is helping but it does not last long. She notes increased redness, swelling, and pain to her right lower extremity over the last few days. There are 2 open areas on her lower leg better draining bloody to clear fluid. She denies fever or chills. I discussed with her seeing someone for her lymphedema which she says she already follows with a vascular physician. They had recommended and prescribed her lymphedema stockings but she says she is unable to wear them could she cannot get the stockings on. She states she recently bought some wraps on line and foot squeezers other supposed to help push the fluid back. Review of Systems Review of Systems: All systems reviewed & are unremarkable except as noted in HPI and below Exam Narrative: General: Obese, tearful, appears in pain appears stated age. HEENT: normocephalic, atraumatic. Mucous membranes moist. EOMI, PERRLA, bilateral sclera anicteric, no conjunctival injection. Neck supple without JVD, lymphadenopathy, or bruit. Respiratory: clear to auscultation bilaterally. No rales/rhonic/wheezes. Cardiovascular: Regular rate and rhythm, normal S1-S2 upon auscultation. No murmurs, r
[2024-04-09] MEDS: HYDROcodone/acetaminophen (*CRX) 5-325 MG TABLET 1 TAB PO ×2 (13:08→17:08)
[2024-04-09 16:03] VITALS: BP 104/44; PULSE 71; RESP 17; TEMP 36.6; O2SAT 94
[2024-04-09 16:27] LABS: Creatine Kinase 386 U/L (30-135)
[2024-04-09 16:40] LABS: Complement C3 127 mg/dL (88-165)
[2024-04-09 17:36] LABS: Erythrocyte Sedimentation Rate 95 mm/hr (0-20)
[2024-04-09 19:24] LABS: Creatinine Urine 154.4 mg/dL; Total Protein Urine Random 22 mg/dL; Ur Ttl Prot Creatinine Ratio 0.14 mg/mg (0-0.20)
[2024-04-09 19:26] LABS: Potassium Urine Random 12.8 meq/L; Sodium Urine Random 65 meq/L
[2024-04-09 19:56] LABS: Eosinophil Urine None Seen % (None Seen); Urine Eos QC 2nd Tech Confirmed
[2024-04-09] MEDS: traZODone HCL 50 MG TABLET 100 MG PO (20:51)
[2024-04-09 22:00] VITALS: BP 98/45; PULSE 83; RESP 22; TEMP 36.4; O2SAT 93
[2024-04-09 22:35] VITALS: BP 108/52
[2024-04-10] MEDS: HYDROcodone/acetaminophen (*CRX) 5-325 MG TABLET 1 TAB PO ×3 (02:50→20:09)
[2024-04-10 05:10] LABS: Basophils Absolute Auto 0.1 K/mm3 (0.0-0.1); Basophils Percent Auto 0.6 % (0.2-1.2); Eosinophils Absolute Auto 0.2 K/mm3 (0-0.3); Eosinophils Percent Auto 1.9 % (0-4.4); Hematocrit 33.5 % (37.0-47.0); Hemoglobin 10.6 g/dL (12.0-15.0); Immature Granulocyte Absolute 0.18 K/mm3 (0.00-0.031); Immature Granulocyte Percent A 1.6 % (0-0.5); Lymphocytes Absolute Auto 1.24 K/mm3 (0.9-3.2); Mean Corpuscular HGB Conc 31.6 g/dl (32-36); Mean Corpuscular Hemoglobin 30.6 pg (26-34); Mean Corpuscular Volume 96.8 fl (80-100); Mean Platelet Volume 9.5 fl (7.4-10.4); Monocytes Absolute Auto 0.7 K/mm3 (0.1-0.6); Monocytes Percent Auto 6.2 % (2.6-8.5); Neutrophils Absolute Auto 8.9 K/mm3 (1.3-6.7); Neutrophils Percent Auto 78.7 % (45.5-73.1); Platelet Count Result 312 k/mm3 (150-375); Red Blood Count 3.46 M/mm3 (4.2-5.4); Red Cell Distribution Width 14.5 % (11.5-14.5); White Blood Count 11.3 K/mm3 (4.5-10.0)
[2024-04-10 05:22] LABS: Alanine Aminotransferase 44 U/L (6-35); Albumin Level 3.7 g/dL (3.5-5.1); Alkaline Phosphatase 121 U/L (38-126); Anion Gap 15 mmol/L (4-12); Aspartate Amino Transferase 79 U/L (14-36); Bilirubin,Total 0.5 mg/dL (0.2-1.3); Blood Urea Nitrogen 75 mg/dL (7-17); Calcium 8.4 mg/dL (8.4-10.2); Carbon Dioxide 20 mmol/L (22-30); Chloride 101 mmol/L (98-107); Estimated CRCL calculation 16 ml/min; Estimated Glomerular Filt Rate 9; Glucose 108 mg/dL (65-110); Magnesium 2.5 mg/dL (1.6-2.3); Potassium 3.8 mmol/L (3.4-5.0); Sodium 136 mmol/L (137-145)
[2024-04-10] MEDS: PIPERACILLIN/TAZ 2.25G/NS 50ML 2.25 GM/50 ML BAG IVPB (05:50)
[2024-04-10] MEDS: HYDROmorphone HCL INJ (*CRX) 1 MG/ML SYR 0.5 MG IV PUSH ×2 (05:53→11:45)
[2024-04-10 06:00] VITALS: BP 121/34; PULSE 77; RESP 20; TEMP 36.4; O2SAT 96
--- NOTE | 2024-04-10 07:53 | PM.IMPN ---
Progress Note: A&P Assessment and Plan (1) Cellulitis of right lower extremity: Code(s): L03.115 - Cellulitis of right lower limb Status: Acute Assessment and Plan: - did not meet SIRS criteria: WBC only - WBC 22.2---->13.6-->11.3 - US of RLE showed no DVT - known small venous stasis ulcerations of BLE - started on clindamycin on 04/08, transitioned to Zosyn to cover possible UTI (UA equivocal, follow culture) - Urine culture had no growth, d/c zosyn and start Rocephin for cellulitis. Low risk for MRSA. - wound care consulted - monitor WBC -pain medication with [place] and p.r.n. Dilaudid for breakthrough (2) Acute kidney injury: Code(s): N17.9 - Acute kidney failure, unspecified Status: Acute Assessment and Plan: - creatinine 3.6 and GFR 13, previously 1.3 and GFR 41 in 2020. Recent Cr at [place] was 1.5-1.8 - add CK, urine sodium, urine protein/creatinine, urine creatinine - UA equivocal for UTI, may be contaminant. Antibiotics exchanged to cover for possible UTI, follow culture. - bladder scan for post-void residual - monitor I&Os - will hold home diuretics due to unclear baseline. on torsemide 10 mg daily, spironolactone 25 mg daily, and chlorthalidone 25 mg daily. - was on LR at 100 ml per hour. Order discontinued at midnight for some reason. NS resumed at 100 ml an hour today - renal ultrasound ordered - FeNA 1.4% - Sodium bicarb 650 mg PO BID - [place] records have been requested - nephrology consulted, recs appreciated (3) Venous stasis ulcers of both lower extremities: Code(s): I83.019 - Varicose veins of right lower extremity with ulcer of unspecified site; I83.029 - Varicose veins of left lower extremity with ulcer of unspecified site; L97.919 - Non-pressure chronic ulcer of unspecified part of right lower leg with unspecified severity; L97.929 - Non-pressure chronic ulcer of unspecified part of left lower leg with unspecified severity Status: Acute Assessment and Plan: - will need outpatient follow-up with Vascular---already established - Hernandez wraps to bilateral lower extremities when pain is better controlled - wound care consulted Plan Apnea link added to screen for ROBE, patient reported she has put off scheduling a formal sleep study due to concerns for ROBE by her vascular surgeon. Apnea link showed AHI 4.9 and MAGGI 6.1. She had 6 minutes of desaturations less than 90% and 2 minutes of desaturations of less than 89%. Total desaturations of 44. Diet: Renal GI Prophylaxis: Not currently indicated DVT Prophylaxis: Lovenox 30 Lines: Peripheral Code Status: Full code Subjective Date/time seen: 04/10/24 07:53 Interval history: 69 y/o F presents here with leg swelling with PMH of anxiety/depression, CVA with residual right-sided hemiplegia, obesity, chronic venous stasis dermatitis, and hypertension. The patient presents here via personal vehicle from home for further evaluation of lower extremity swelling. 04/09: Patient is seen sitting on the edge of the bed and is crying because she is in pain. She states that she has severe pain to her right lower extremity. The Dilaudid is helping but it does not last long. She notes increased redness, swelling, and pain to her right lower extremity over the last few days. There are 2 open areas on her lower leg better draining bloody to clear fluid. She denies fever or chills. I discussed with her seeing someone for her lymphedema which she says she already follows with a vascular physician. They had recommended and prescribed her lymphedema stockings but she says she is unable to wear them could she cannot get the stockings on. She states she recently bought some wraps on line and foot squeezers other supposed to help push the fluid back. 04/10: Mrs. Lisa is tearful. Her biggest problem at this time is that she is tired and cannot get comfortable in the bed. She normally sleeps sitting up at home. She is al
[2024-04-10] MEDS: clonazePAM (*CRX) 0.5 MG TABLET 1 MG PO ×3 (08:23→16:57)
[2024-04-10] MEDS: DULoxetine HCL 60 MG CAPSULE.DR PO ×2 (08:23→16:57)
[2024-04-10] MEDS: SODIUM CHLORIDE 0.9% IV 1,000 ML 100 ML IV CONT ×2 (08:24→20:06)
[2024-04-10] MEDS: ENOXAPARIN 30 MG/0.3 ML SYRINGE SUB-Q (08:24)
--- NOTE | 2024-04-10 12:17 | PM.CNNEP ---
Assessment and Plan Assessment and plan (1) Acute kidney injury: Code(s): N17.9 - Acute kidney failure, unspecified Status: Acute Assessment and Plan: as noted on presentation/admission etiology not clear evaluation to date noted: renal ultrasound unremarkable urine eosinophils negative urine electrolytes non-prerenal (but on diuretics [employer]) no significant proteinuria UA with pyruria but culture negative CPK mildly elevated (be not enough to affect kidney function) possibly due to infection versus relative hypotension versus overdiuresis (?) HILARIO-I and diuretics on hold trial of IVFs initiated follow trend of repeat labs and UOP (2) Chronic kidney disease, stage 3: Code(s): N18.30 - Chronic kidney disease, stage 3 unspecified Status: Acute Assessment and Plan: baseline creatinine runs ~ 1.3 - 1.5mg/dl this causes her to fluctuate between CKD stage 3A and stage 3B 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 Cain Martins for CKD management (3) Cellulitis of right lower extremity: Code(s): L03.115 - Cellulitis of right lower limb Status: Acute Assessment and Plan: as noted by clinical exam RLE doppler negative for DVT complicated by small venous stasis ulcerations follow culture data on antibiotics WBC improving pain control (4) Venous stasis ulcers of both lower extremities: Code(s): I83.019 - Varicose veins of right lower extremity with ulcer of unspecified site; I83.029 - Varicose veins of left lower extremity with ulcer of unspecified site; L97.919 - Non-pressure chronic ulcer of unspecified part of right lower leg with unspecified severity; L97.929 - Non-pressure chronic ulcer of unspecified part of left lower leg with unspecified severity Status: Acute Assessment and Plan: has follow-up with Vascular Surgery ABIs noted HILARIO wraps in place wound care following I will continue to follow the patient with you while she remains hospitalized and make further recommendations as deemed necessary. Thank you for allowing me to participate in the care of this patient. History of Present Illness Reason for Consult Consult date: 04/10/24 Reason for consult: acute renal failure (on chronic kidney disease) Chief Complaint Chief complaint: lower extremity cellulitis History of Present Illness Narrative: The patient is a 69-year-old female with a past medical history as outlined below who presented to [facility] Emergency room for further evaluation lower extremity swelling and pain. the patient states that she has noticed increasing pain, swelling /edema, and redness to her right extremity for last three or four days. The pain in her right lower extremity is described as a sharp sensation that is nonradiating and appears to be fairly constant. She has received some partial relief with use of Tylenol to a certain extent. She denies any precipitating injury or trauma to her right lower extremity. She does have a known history of chronic venous stasis ulcers bilaterally and she thinks there may be more ulcerations on the right lower extremity at this time. No reported symptoms of fevers, chills, diaphoresis, body aches, shortness of breath, lightheadedness, or dizziness. Given the symptoms as mentioned, she presented to the ER for further assessment. Workup and evaluation emergency room demonstrated the patient to be hemodynamically stable and afebrile. Routine blood tests were significant for a white blood cell count of 22.1, hemoglobin 11.6, a creatinine of 3.6 mg/dL. Ultrasound of her right lower extremity demonstrated no DVT
--- NOTE | 2024-04-10 12:17 | P.CONNP_ITS ---
Assessment and Plan Assessment and plan (1) Acute kidney injury: Code(s): N17.9 - Acute kidney failure, unspecified Status: Acute Assessment and Plan: * as noted on presentation/admission * etiology not clear * evaluation to date noted: * renal ultrasound unremarkable * urine eosinophils negative * urine electrolytes non-prerenal (but on diuretics TROUBLE LOCATER) * no significant proteinuria * UA with pyruria but culture negative * CPK mildly elevated (be not enough to affect kidney function) * possibly due to infection versus relative hypotension versus overdiuresis (?) * HILARIO-I and diuretics on hold * trial of IVFs initiated * follow trend of repeat labs and UOP (2) Chronic kidney disease, stage 3: Code(s): N18.30 - Chronic kidney disease, stage 3 unspecified Status: Acute Assessment and Plan: * baseline creatinine runs ~ 1.3 - 1.5mg/dl * this causes her to fluctuate between CKD stage 3A and stage 3B * 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 Cain Martins for CKD management (3) Cellulitis of right lower extremity: Code(s): L03.115 - Cellulitis of right lower limb Status: Acute Assessment and Plan: * as noted by clinical exam * RLE doppler negative for DVT * complicated by small venous stasis ulcerations * follow culture data * on antibiotics * WBC improving * pain control (4) Venous stasis ulcers of both lower extremities: Code(s): I83.019 - Varicose veins of right lower extremity with ulcer of unspecified site; I83.029 - Varicose veins of left lower extremity with ulcer of unspecified site; L97.919 - Non-pressure chronic ulcer of unspecified part of right lower leg with unspecified severity; L97.929 - Non-pressure chronic ulcer of unspecified part of left lower leg with unspecified severity Status: Acute Assessment and Plan: * has follow-up with Vascular Surgery * ABIs noted * HILARIO wraps in place * wound care following I will continue to follow the patient with you while she remains hospitalized and make further recommendations as deemed necessary. Thank you for allowing me to participate in the care of this patient. History of Present Illness Reason for Consult Consult date: 04/10/24 Reason for consult: acute renal failure (on chronic kidney disease) Chief Complaint Chief complaint: lower extremity cellulitis History of Present Illness Narrative: The patient is a 69-year-old female with a past medical history as outlined below who presented to [facility] Emergency room for further evaluation lower extremity swelling and pain. the patient states that she has noticed increasing pain, swelling /edema, and redness to her right extremity for last three or four days. The pain in her right lower extremity is described as a sharp sensation that is nonradiating and appears to be fairly constant. She has received some partial relief with use of Tylenol to a certain extent. She denies any precipitating injury or trauma to her right lower extremity. She does have a known history of chronic venous stasis ulcers bilaterally and she thinks there may be more ulcerations on the right lower extremity at this time. No reported symptoms of fevers, chills, diaphoresis, body aches, shortness of breath, lightheadedne
[2024-04-10 15:55] VITALS: BP 116/53; PULSE 79; RESP 18; TEMP 36.2; O2SAT 98
[2024-04-10] MEDS: SODIUM BICARBONATE TAB 650 MG TABLET PO (16:58)
[2024-04-10 18:43] LABS: Creatinine Urine 109.8 mg/dL; Urea Random Urine 709 MG/DL
[2024-04-10] MEDS: traZODone HCL 50 MG TABLET 100 MG PO (20:06)
[2024-04-10 21:27] VITALS: BP 124/41; PULSE 83; RESP 22; TEMP 36.7; O2SAT 96
[2024-04-11] MEDS: SODIUM CHLORIDE 0.9% IV 1,000 ML 100 ML IV CONT ×2 (04:01→17:45)
[2024-04-11] MEDS: HYDROcodone/acetaminophen (*CRX) 5-325 MG TABLET 1 TAB PO ×3 (04:01→17:45)
--- NOTE | 2024-04-11 05:24 | PC.NURSE ---
Pt has been very anxious and tearful this morning.
[2024-04-11 05:52] VITALS: BP 90/64; PULSE 67; RESP 22; TEMP 36.6; O2SAT 98
[2024-04-11] MEDS: clonazePAM (*CRX) 0.5 MG TABLET 1 MG PO ×3 (08:48→17:45)
[2024-04-11] MEDS: DULoxetine HCL 60 MG CAPSULE.DR PO ×2 (08:48→17:45)
[2024-04-11] MEDS: SODIUM BICARBONATE TAB 650 MG TABLET PO ×2 (08:48→17:45)
[2024-04-11] MEDS: ENOXAPARIN 30 MG/0.3 ML SYRINGE SUB-Q (08:49)
--- NOTE | 2024-04-11 10:05 | P.PNNP_ITS ---
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) * no significant proteinuria * UA with pyruria but culture negative * CPK mildly elevated (be not enough to affect kidney function) * possibly due to infection versus relative hypotension versus overdiuresis (?) * HILARIO-I and diuretics on hold * trial of IVFs * follow trend of repeat labs and UOP (2) Chronic kidney disease, stage 3: Code(s): N18.30 - Chronic kidney disease, stage 3 unspecified Status: Acute Assessment and Plan: * baseline creatinine runs ~ 1.3 - 1.5mg/dl * this causes her to fluctuate between CKD stage 3A and stage 3B * 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 Cain Martins for CKD management (3) Cellulitis of right lower extremity: Code(s): L03.115 - Cellulitis of right lower limb Status: Acute Assessment and Plan: * as noted by clinical exam * RLE doppler negative for DVT * complicated by small venous stasis ulcerations * follow culture data * on antibiotics * WBC improving * pain control (4) Venous stasis ulcers of both lower extremities: Code(s): I83.019 - Varicose veins of right lower extremity with ulcer of unspecified site; I83.029 - Varicose veins of left lower extremity with ulcer of unspecified site; L97.919 - Non-pressure chronic ulcer of unspecified part of right lower leg with unspecified severity; L97.929 - Non-pressure chronic ulcer of unspecified part of left lower leg with unspecified severity Status: Acute Assessment and Plan: * has follow-up with Vascular Surgery * ABIs noted * HILARIO wraps in place * wound care following Will continue to follow. Subjective Date/time seen: 04/11/24 10:05 Interval history: Follow-up on acute kidney injury/acute renal failure on chronic kidney disease. Renal function/creatinine doing better by recent testing following interventions/therapy to date; no apparent distress noted other than pain in her right lower extremity; sitting up in chair with right leg propped up; reasonable urine output noted as well. Exam Narrative: General: large WD/WN female in mild distress secondary to pain Heart: normal S1 and S2; no rub Lungs: clear to auscultation Abdomen: soft, nontender, nondistended, positive bowel sounds Extremities: no cyanosis or clubbing Skin: bilateral lower lymphedema with venous stasis skin changes Objective Data Vital Signs Vital Signs: Vital Signs Temp Pulse Resp BP Pulse Ox O2 Del Method 04/11/24 08:53 Room Air 04/11/24 05:52 97.9 F 67 22 H 90/64 L 98 04/10/24 20:00 Room Air 04/10/24 21:27 98.1 F 83 22 H 124/41 L 96 04/10/24 15:55 97.2 F L 79 18 116/53 L 98 Intake/Output Intake/Out
--- NOTE | 2024-04-11 10:05 | PM.PNNEP ---
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) no significant proteinuria UA with pyruria but culture negative CPK mildly elevated (be not enough to affect kidney function) possibly due to infection versus relative hypotension versus overdiuresis (?) HILARIO-I and diuretics on hold trial of IVFs follow trend of repeat labs and UOP (2) Chronic kidney disease, stage 3: Code(s): N18.30 - Chronic kidney disease, stage 3 unspecified Status: Acute Assessment and Plan: baseline creatinine runs ~ 1.3 - 1.5mg/dl this causes her to fluctuate between CKD stage 3A and stage 3B 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 Cain Martins for CKD management (3) Cellulitis of right lower extremity: Code(s): L03.115 - Cellulitis of right lower limb Status: Acute Assessment and Plan: as noted by clinical exam RLE doppler negative for DVT complicated by small venous stasis ulcerations follow culture data on antibiotics WBC improving pain control (4) Venous stasis ulcers of both lower extremities: Code(s): I83.019 - Varicose veins of right lower extremity with ulcer of unspecified site; I83.029 - Varicose veins of left lower extremity with ulcer of unspecified site; L97.919 - Non-pressure chronic ulcer of unspecified part of right lower leg with unspecified severity; L97.929 - Non-pressure chronic ulcer of unspecified part of left lower leg with unspecified severity Status: Acute Assessment and Plan: has follow-up with Vascular Surgery ABIs noted HILARIO wraps in place wound care following Will continue to follow. Subjective Date/time seen: 04/11/24 10:05 Interval history: Follow-up on acute kidney injury/acute renal failure on chronic kidney disease. Renal function/creatinine doing better by recent testing following interventions/therapy to date; no apparent distress noted other than pain in her right lower extremity; sitting up in chair with right leg propped up; reasonable urine output noted as well. Exam Narrative: General: large WD/WN female in mild distress secondary to pain Heart: normal S1 and S2; no rub Lungs: clear to auscultation Abdomen: soft, nontender, nondistended, positive bowel sounds Extremities: no cyanosis or clubbing Skin: bilateral lower lymphedema with venous stasis skin changes Objective Data Vital Signs Vital Signs: Vital Signs Temp Pulse Resp BP Pulse Ox O2 Del Method 04/11/24 08:53 Room Air 04/11/24 05:52 97.9 F 67 22 H 90/64 L 98 04/10/24 20:00 Room Air 04/10/24 21:27 98.1 F 83 22 H 124/41 L 96 04/10/24 15:55 97.2 F L 79 18 116/53 L 98 Intake/Output Intake/Output: Intake & Output 04/08/24 04/09/24 04/10/24 04/11/24 23:59 23:59 23:59 23:59 Intake Total 390 1810 2390 1801.7 Output Total 900 500 700 Balance 324 833 4393 1101.7 Meds/Results Medications: Active Medications Generic Name Dose Route Start Last Admin Trade Name Freq PRN Reason Stop Dose Admin Acetaminophen 650 mg 04/08/24 16:00 Acetaminophen 325 Mg Tablet PO Q4H PRN Pain Rated 5 or Less Hydrocodone Bitart/Acetaminophen 1 tab 04/09/24 10:52 04/11/24 08:53 Hydrocodone/Acetaminophen (*Crx) 5-325 Mg Tablet PO 1 tab Q4H PRN Administration
[2024-04-11 10:20] LABS: Basophils Absolute Auto 0.1 K/mm3 (0.0-0.1); Basophils Percent Auto 0.9 % (0.2-1.2); Eosinophils Absolute Auto 0.3 K/mm3 (0-0.3); Eosinophils Percent Auto 2.8 % (0-4.4); Hematocrit 36.7 % (37.0-47.0); Hemoglobin 11.6 g/dL (12.0-15.0); Immature Granulocyte Absolute 0.36 K/mm3 (0.00-0.031); Immature Granulocyte Percent A 3.5 % (0-0.5); Lymphocytes Absolute Auto 1.41 K/mm3 (0.9-3.2); Lymphocytes Percent Auto 13.6 % (18.3-44.2); Mean Corpuscular HGB Conc 31.6 g/dl (32-36); Mean Corpuscular Hemoglobin 30.7 pg (26-34); Mean Corpuscular Volume 97.1 fl (80-100); Mean Platelet Volume 9.4 fl (7.4-10.4); Monocytes Absolute Auto 0.5 K/mm3 (0.1-0.6); Monocytes Percent Auto 5.1 % (2.6-8.5); Neutrophils Absolute Auto 7.7 K/mm3 (1.3-6.7); Neutrophils Percent Auto 74.1 % (45.5-73.1); Platelet Count Result 356 k/mm3 (150-375); Red Blood Count 3.78 M/mm3 (4.2-5.4); Red Cell Distribution Width 14.5 % (11.5-14.5); White Blood Count 10.3 K/mm3 (4.5-10.0)
[2024-04-11 10:49] LABS: Alanine Aminotransferase 66 U/L (6-35); Albumin Level 4.2 g/dL (3.5-5.1); Alkaline Phosphatase 115 U/L (38-126); Anion Gap 11 mmol/L (4-12); Aspartate Amino Transferase 119 U/L (14-36); Bilirubin,Total 0.5 mg/dL (0.2-1.3); Blood Urea Nitrogen 53 mg/dL (7-17); Calcium 8.7 mg/dL (8.4-10.2); Carbon Dioxide 26 mmol/L (22-30); Chloride 104 mmol/L (98-107); Estimated CRCL calculation 27 ml/min; Estimated Glomerular Filt Rate 18; Glucose 134 mg/dL (65-110); Magnesium 2.6 mg/dL (1.6-2.3); Phosphorus 3.9 mg/dL (2.5-4.5); Potassium 4.1 mmol/L (3.4-5.0); Sodium 141 mmol/L (137-145)
--- NOTE | 2024-04-11 11:05 | PM.IMPN ---
Progress Note: A&P Assessment and Plan (1) Cellulitis of right lower extremity: Code(s): L03.115 - Cellulitis of right lower limb Status: Acute Assessment and Plan: - did not meet SIRS criteria: WBC only - WBC 22.2---->13.6-->11.3-->10.3 - US of RLE showed no DVT - known small venous stasis ulcerations of BLE - started on clindamycin on 04/08, transitioned to Zosyn to cover possible UTI (UA equivocal, follow culture) - Urine culture had no growth, d/c zosyn and start Rocephin for cellulitis. Low risk for MRSA. - wound care consulted - monitor WBC -pain medication with [place] 5-10 mg q 4 hours and p.r.n. Dilaudid for breakthrough (2) Acute kidney injury: Code(s): N17.9 - Acute kidney failure, unspecified Status: Acute Assessment and Plan: - creatinine 3.6 and GFR 13, previously 1.3 and GFR 41 in 2020. Recent Cr at [place] was 1.5-1.8 - add CK, urine sodium, urine protein/creatinine, urine creatinine - UA equivocal for UTI, may be contaminant. Antibiotics exchanged to cover for possible UTI, follow culture. - bladder scan for post-void residual - monitor I&Os - will hold home diuretics due to unclear baseline. on torsemide 10 mg daily, spironolactone 25 mg daily, and chlorthalidone 25 mg daily. - was on LR at 100 ml per hour. Order discontinued at midnight for some reason. NS resumed at 100 ml an hour today - renal ultrasound ordered - FeNA 1.4% - Creatinine improving with fluids and holding home medications. Suspected 2/2 torsemide. This was a new medication for her for which she has taken for a couple of weeks for her lymphedema. - Sodium bicarb 650 mg PO BID - [place] records have been requested - nephrology consulted, recs appreciated (3) Venous stasis ulcers of both lower extremities: Code(s): I83.019 - Varicose veins of right lower extremity with ulcer of unspecified site; I83.029 - Varicose veins of left lower extremity with ulcer of unspecified site; L97.919 - Non-pressure chronic ulcer of unspecified part of right lower leg with unspecified severity; L97.929 - Non-pressure chronic ulcer of unspecified part of left lower leg with unspecified severity Status: Acute Assessment and Plan: - will need outpatient follow-up with Vascular---already established - EDDIE with moderate arterial disease to RLE and mild disease to LLE - Hernandez wraps to bilateral lower extremities when pain is better controlled - wound care consulted Plan Apnea link added to screen for ROBE, patient reported she has put off scheduling a formal sleep study due to concerns for ROBE by her vascular surgeon. Apnea link showed AHI 4.9 and MAGGI 6.1. She had 6 minutes of desaturations less than 90% and 2 minutes of desaturations of less than 89%. Total desaturations of 44. Diet: Renal GI Prophylaxis: Not currently indicated DVT Prophylaxis: Lovenox 30 Lines: Peripheral Code Status: Full code Subjective Date/time seen: 04/11/24 11:05 Interval history: 69 y/o F presents here with leg swelling with PMH of anxiety/depression, CVA with residual right-sided hemiplegia, obesity, chronic venous stasis dermatitis, and hypertension. The patient presents here via personal vehicle from home for further evaluation of lower extremity swelling. 04/09: Patient is seen sitting on the edge of the bed and is crying because she is in pain. She states that she has severe pain to her right lower extremity. The Dilaudid is helping but it does not last long. She notes increased redness, swelling, and pain to her right lower extremity over the last few days. There are 2 open areas on her lower leg better draining bloody to clear fluid. She denies fever or chills. I discussed with her seeing someone for her lymphedema which she says she already follows with a vascular physician. They had recommended and prescribed her lymphedema stockings but she says she is unable to wear them could she cannot get the stockings on.
[2024-04-11] MEDS: HYDROcodone/acetaminophen (*CRX) 10-325 MG TABLET 1 TAB PO ×2 (13:02→20:17)
[2024-04-11 14:00] VITALS: BP 111/43; PULSE 82; RESP 18; TEMP 36.9; O2SAT 99
[2024-04-11] MEDS: traZODone HCL 50 MG TABLET 100 MG PO (20:17)
[2024-04-11 22:00] VITALS: BP 106/48; PULSE 65; RESP 20; TEMP 36.5; O2SAT 97
[2024-04-12 05:51] LABS: Hematocrit 31.6 % (37.0-47.0); Hemoglobin 9.7 g/dL (12.0-15.0); Mean Corpuscular HGB Conc 30.7 g/dl (32-36); Mean Corpuscular Hemoglobin 30.1 pg (26-34); Mean Corpuscular Volume 98.1 fl (80-100); Mean Platelet Volume 9.2 fl (7.4-10.4); Platelet Count Result 301 k/mm3 (150-375); Red Blood Count 3.22 M/mm3 (4.2-5.4); Red Cell Distribution Width 14.5 % (11.5-14.5); White Blood Count 9.5 K/mm3 (4.5-10.0)
[2024-04-12] MEDS: HYDROcodone/acetaminophen (*CRX) 10-325 MG TABLET 1 TAB PO (05:56)
[2024-04-12] MEDS: SODIUM CHLORIDE 0.9% IV 1,000 ML 100 ML IV CONT (05:56)
[2024-04-12 06:00] VITALS: BP 123/57; PULSE 69; RESP 20; TEMP 36.7; O2SAT 97
[2024-04-12 06:12] LABS: Alanine Aminotransferase 52 U/L (6-35); Albumin Level 3.6 g/dL (3.5-5.1); Alkaline Phosphatase 81 U/L (38-126); Anion Gap 8 mmol/L (4-12); Aspartate Amino Transferase 84 U/L (14-36); Bilirubin,Total 0.3 mg/dL (0.2-1.3); Blood Urea Nitrogen 37 mg/dL (7-17); Calcium 7.9 mg/dL (8.4-10.2); Carbon Dioxide 23 mmol/L (22-30); Chloride 109 mmol/L (98-107); Estimated CRCL calculation 44 ml/min; Estimated Glomerular Filt Rate 32; Glucose 101 mg/dL (65-110); Magnesium 2.6 mg/dL (1.6-2.3); Potassium 4.1 mmol/L (3.4-5.0); Sodium 140 mmol/L (137-145)
[2024-04-12 06:27] LABS: Band Neutrophils Percent 7 % (0-6); Eosinophils Absolute Manual 0.28 K/mm3 (0.02-0.50); Eosinophils Percent Manual 3 % (0-4); Lymphocytes Absolute Manual 2.09 K/mm3 (1.1-4.5); Monocytes Absolute Manual 0.19 K/mm3 (0.1-0.90); Monocytes Percent Manual 2 % (3-9); Neutrophils Absolute Manual 6.93 K/mm3 (1.7-7.2); Neutrophils Percent Manual 66 % (46-73); Total Cells Counted 100
[2024-04-12 06:28] LABS: Platelet Estimate Adequate (Adequate); Schistocytes None Seen
[2024-04-12] MEDS: DULoxetine HCL 60 MG CAPSULE.DR PO (08:42)
[2024-04-12] MEDS: SODIUM BICARBONATE TAB 650 MG TABLET PO (08:42)
[2024-04-12] MEDS: clonazePAM (*CRX) 0.5 MG TABLET 1 MG PO ×2 (08:42→12:36)
[2024-04-12] MEDS: ENOXAPARIN 40 MG/0.4 ML SYRINGE SUB-Q (08:43)
[2024-04-12 09:49] LABS: NT Pro B Type Natriuretic Pept 247 pg/mL (19.9-100)
--- NOTE | 2024-04-12 10:46 | PM.PNNEP ---
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) no significant proteinuria UA with pyruria but culture negative CPK mildly elevated (be not enough to affect kidney function) possibly due to infection versus relative hypotension versus overdiuresis (?) HILARIO-I and diuretics on hold s/p IVFs follow trend of repeat labs and UOP (2) Chronic kidney disease, stage 3: Code(s): N18.30 - Chronic kidney disease, stage 3 unspecified Status: Acute Assessment and Plan: baseline creatinine runs ~ 1.3 - 1.5mg/dl this causes her to fluctuate between CKD stage 3A and stage 3B 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 Cain Martins for CKD management (3) Cellulitis of right lower extremity: Code(s): L03.115 - Cellulitis of right lower limb Status: Acute Assessment and Plan: as noted by clinical exam RLE doppler negative for DVT complicated by small venous stasis ulcerations follow culture data on antibiotics WBC improving pain control (4) Venous stasis ulcers of both lower extremities: Code(s): I83.019 - Varicose veins of right lower extremity with ulcer of unspecified site; I83.029 - Varicose veins of left lower extremity with ulcer of unspecified site; L97.919 - Non-pressure chronic ulcer of unspecified part of right lower leg with unspecified severity; L97.929 - Non-pressure chronic ulcer of unspecified part of left lower leg with unspecified severity Status: Acute Assessment and Plan: has follow-up with Vascular Surgery ABIs noted HILARIO wraps in place wound care following Will continue to follow. Subjective Date/time seen: 04/12/24 10:46 Interval history: Follow-up on acute kidney injury/acute renal failure on chronic kidney disease. Renal function/creatinine continues to improve/stabilize with current interventions/therapy; still with on/off pain in her right lower extremity but no other distress; no issues/events overnight or earlier this morning. Exam Narrative: General: large WD/WN female in mild distress secondary to pain Heart: normal S1 and S2; no rub Lungs: clear to auscultation Abdomen: soft, nontender, nondistended, positive bowel sounds Extremities: no cyanosis or clubbing Skin: bilateral lower lymphedema with venous stasis skin changes Objective Data Vital Signs Vital Signs: Vital Signs Temp Pulse Resp BP Pulse Ox O2 Del Method 04/12/24 08:42 Room Air 04/12/24 06:00 98.1 F 69 20 123/57 L 97 04/11/24 20:00 Room Air 04/11/24 22:00 97.7 F 65 20 106/48 L 97 04/11/24 14:00 98.4 F 82 18 111/43 L 99 Intake/Output Intake/Output: Intake & Output 04/09/24 04/10/24 04/11/24 04/12/24 23:59 23:59 23:59 23:59 Intake Total 1810 2390 4381.7 2250 Output Total 294 954 2269 1600 Balance 910 1890 2481.7 650 Meds/Results Medications: Active Medications Generic Name Dose Route Start Last Admin Trade Name Freq PRN Reason Stop Dose Admin Acetaminophen 650 mg 04/08/24 16:00 Acetaminophen 325 Mg Tablet PO Q4H PRN Pain Rated 5 or Less Hydrocodone Bitart/Acetaminophen 1 tab 04/09/24 10:52 04/11/24 17:45 Hydrocodone/Acetaminophen (*Crx) 5-325 Mg Tablet PO 1 tab Q4H PRN Administration Pain Rated 4-6
--- NOTE | 2024-04-12 10:46 | P.PNNP_ITS ---
Progress Note: A&P Assessment and Plan (1) Acute kidney injury: Code(s): N17.9 - Acute kidney failure, unspecified Status: Acute Assessment and Plan: * improvement noted if not back to baseline * as noted on presentation/admission * etiology not clear * evaluation to date noted: * renal ultrasound unremarkable * urine eosinophils negative * urine electrolytes non-prerenal (but on diuretics CEO NA) * no significant proteinuria * UA with pyruria but culture negative * CPK mildly elevated (be not enough to affect kidney function) * possibly due to infection versus relative hypotension versus overdiuresis (?) * HILARIO-I and diuretics on hold * s/p IVFs * follow trend of repeat labs and UOP (2) Chronic kidney disease, stage 3: Code(s): N18.30 - Chronic kidney disease, stage 3 unspecified Status: Acute Assessment and Plan: * baseline creatinine runs ~ 1.3 - 1.5mg/dl * this causes her to fluctuate between CKD stage 3A and stage 3B * 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 Cain Martins for CKD management (3) Cellulitis of right lower extremity: Code(s): L03.115 - Cellulitis of right lower limb Status: Acute Assessment and Plan: * as noted by clinical exam * RLE doppler negative for DVT * complicated by small venous stasis ulcerations * follow culture data * on antibiotics * WBC improving * pain control (4) Venous stasis ulcers of both lower extremities: Code(s): I83.019 - Varicose veins of right lower extremity with ulcer of unspecified site; I83.029 - Varicose veins of left lower extremity with ulcer of unspecified site; L97.919 - Non-pressure chronic ulcer of unspecified part of right lower leg with unspecified severity; L97.929 - Non-pressure chronic ulcer of unspecified part of left lower leg with unspecified severity Status: Acute Assessment and Plan: * has follow-up with Vascular Surgery * ABIs noted * HILARIO wraps in place * wound care following Will continue to follow. Subjective Date/time seen: 04/12/24 10:46 Interval history: Follow-up on acute kidney injury/acute renal failure on chronic kidney disease. Renal function/creatinine continues to improve/stabilize with current interventions/therapy; still with on/off pain in her right lower extremity but no other distress; no issues/events overnight or earlier this morning. Exam Narrative: General: large WD/WN female in mild distress secondary to pain Heart: normal S1 and S2; no rub Lungs: clear to auscultation Abdomen: soft, nontender, nondistended, positive bowel sounds Extremities: no cyanosis or clubbing Skin: bilateral lower lymphedema with venous stasis skin changes Objective Data Vital Signs Vital Signs: Vital Signs Temp Pulse Resp BP Pulse Ox O2 Del Method 04/12/24 08:42 Room Air 04/12/24 06:00 98.1 F 69 20 123/57 L 97 04/11/24 20:00 Room Air 04/11/24 22:00 97.7 F 65 20 106/48 L 97 04/11/24 14:00 98.4 F 82 18 111/43 L 99 Intake/Output Intake/Output:
--- NOTE | 2024-04-12 15:14 | PM.DS ---
DS: Admitting Diagnosis Discharge Date 04/12 Admitting Diagnosis Right lower leg swelling and pain DS: Discharge Diagnosis Discharge Diagnosis (1) Cellulitis of right lower extremity: Code(s): L03.115 - Cellulitis of right lower limb Status: Acute Assessment and Plan: - did not meet SIRS criteria: WBC only - WBC 22.2---->13.6-->11.3-->10.3 - US of RLE showed no DVT - known small venous stasis ulcerations of BLE - started on clindamycin on 04/08, transitioned to Zosyn to cover possible UTI (UA equivocal, follow culture) - Urine culture had no growth, d/c zosyn and start Rocephin for cellulitis. Low risk for MRSA. - wound care consulted - monitor WBC -pain medication with [place] 5-10 mg q 4 hours and p.r.n. Dilaudid for breakthrough (2) Acute kidney injury: Code(s): N17.9 - Acute kidney failure, unspecified Status: Acute Assessment and Plan: - creatinine 3.6 and GFR 13, previously 1.3 and GFR 41 in 2020. Recent Cr at [facility] was 1.5-1.8 - add CK, urine sodium, urine protein/creatinine, urine creatinine - UA equivocal for UTI, may be contaminant. Antibiotics exchanged to cover for possible UTI, follow culture. - bladder scan for post-void residual - monitor I&Os - will hold home diuretics due to unclear baseline. on torsemide 10 mg daily, spironolactone 25 mg daily, and chlorthalidone 25 mg daily. - was on LR at 100 ml per hour. Order discontinued at midnight for some reason. NS resumed at 100 ml an hour today - renal ultrasound ordered - FeNA 1.4% - Creatinine improving with fluids and holding home medications. Suspected 2/2 torsemide. This was a new medication for her for which she has taken for a couple of weeks for her lymphedema. - Sodium bicarb 650 mg PO BID - [facility] records have been requested - nephrology consulted, recs appreciated (3) Venous stasis ulcers of both lower extremities: Code(s): I83.019 - Varicose veins of right lower extremity with ulcer of unspecified site; I83.029 - Varicose veins of left lower extremity with ulcer of unspecified site; L97.919 - Non-pressure chronic ulcer of unspecified part of right lower leg with unspecified severity; L97.929 - Non-pressure chronic ulcer of unspecified part of left lower leg with unspecified severity Status: Acute Assessment and Plan: - will need outpatient follow-up with Vascular---already established - EDDIE with moderate arterial disease to RLE and mild disease to LLE - Hernandez wraps to bilateral lower extremities when pain is better controlled - wound care consulted Plan Apnea link added to screen for ROBE, patient reported she has put off scheduling a formal sleep study due to concerns for ROBE by her vascular surgeon. Apnea link showed AHI 4.9 and MAGGI 6.1. She had 6 minutes of desaturations less than 90% and 2 minutes of desaturations of less than 89%. Total desaturations of 44. Diet: Renal GI Prophylaxis: Not currently indicated DVT Prophylaxis: Lovenox 30 Lines: Peripheral Code Status: Full code DS: Summary Hospital Course Reason for hospitalization: Cellulitis, acute on chronic renal failure Hospital Course: 69 y/o F presents here with leg swelling with PMH of anxiety/depression, CVA with residual right-sided hemiplegia, obesity, chronic venous stasis dermatitis, and hypertension. The patient presents here via personal vehicle from home for further evaluation of lower extremity swelling. The patient reports onset of increased pain, swelling, and erythema to her right lower extremity with onset approximately 3 days ago. She describes the pain to her RLE as sharp, nonradiating, constant, partially relieved with Tylenol, and no aggravating factors. She denies any precipitating injury or trauma to RLE. Patient does have history of chronic venous stasis ulcers bilaterally, ulcerations are unchanged but skin surrounding ulceration on the right had changes as listed. Patient has no known history of DV
[2024-04-12 15:43] LABS: Chloride Rand Ur 45 mmol/L (32-290); Chloride/Creatinine Rand Ur 29 (38-318); Creatinine, Random Urine 153 mg/dL (20-275); Total Prot/Creat ratio mg/mg 0.209 (0.024-0.184); Total Protein/Creatinine Ratio 209 mg/g creat (24-184)
[2024-04-13 12:48] LABS: Osmolality, Urine 373 mOsm/kg (50-1200)
[2024-04-19 13:50] LABS: Creatinine Random Urine 153 mg/dL
== END 2024-04-12 15:30 | disposition home or self-care (01) | DRG 603 ==
LOC: ANHED 11:48 → ANH3MED 14:02
PROVIDERS: Internal Medicine Nephrology; Student in an Organized Health Care Education/Training Program; Admitting Provider Internal Medicine; Emergency Provider Student in an Organized Health Care Education/Training Program; PCP Family Medicine; Visit Provider Nurse Practitioner Acute Care
DX: L03.115 Cellulitis of right lower limb (principal); L97.829 Non-pressure chronic ulcer of other part of left lower leg with unspecified severity; L97.819 Non-pressure chronic ulcer of other part of right lower leg with unspecified severity; N17.9 Acute kidney failure, unspecified; I69.351 Hemiplegia and hemiparesis following cerebral infarction affecting right dominant side; Z68.43 Body mass index [BMI] 50.0-59.9, adult; I12.9 Hypertensive chronic kidney disease with stage 1 through stage 4 chronic kidney disease, or unspecified chronic kidney disease; N18.9 Chronic kidney disease, unspecified; I87.2 Venous insufficiency (chronic) (peripheral); F41.8 Other specified anxiety disorders; E66.01 Morbid (severe) obesity due to excess calories; M17.0 Bilateral primary osteoarthritis of knee; G47.33 Obstructive sleep apnea (adult) (pediatric); M81.0 Age-related osteoporosis without current pathological fracture; I89.0 Lymphedema, not elsewhere classified; L40.9 Psoriasis, unspecified; L30.9 Dermatitis, unspecified; Z86.718 Personal history of other venous thrombosis and embolism; Z86.711 Personal history of pulmonary embolism; Z87.891 Personal history of nicotine dependence; Z90.49 Acquired absence of other specified parts of digestive tract
CPT/HCPCS: 36415; 76775; 80048; 80053; 81001; 82436; 82550; 82570; 83735; 83880; 83930; 83935; 84100; 84133; 84156; 84166; 84300; 84540; 85025; 85610; 85652; 85730; 85999; 86038; 86039; 86160; 86335; 87086; 93922; 93971; 94762; 96372; 99285; A9270; J0696; J1170; J1650; J2543; J7030; J7120